=== PATIENT | female | born 1990 | race Caucasian/White ===

== ENCOUNTER 2018-09-26 19:36 | Emergency (ER) | payer MEDICAID ==
[2018-09-26] MEDS: Ketorolac 60 MG/2 ML SDV IM ONE ×2 (20:35→20:41)
[2018-09-26] MEDS ORDERED: Ibuprofen 800 MG Tab PO ONE (20:50)
--- NOTE | 2018-09-26 21:51 | EDM.PDOC ---
ED HPI GENERAL MEDICAL PROBLEM - General Chief Complaint: Headache Stated Complaint: SEIZURE AND HEADACHE Time Seen by Provider: 09/26/18 19:55 Source of Information: Reports: Intermediate Records History Limitations: Reports: No Limitations - History of Present Illness INITIAL COMMENTS - FREE TEXT/NARRATIVE: c/o of occipital SERRANO "for one year" not every day, has never d/w PCP, has not taken meds a little worse today and left work 1h early to come to ED, declined Toradol, took ibuprofen 800 mg altho said the SERRANO was almost gone said "I am a hypochondriac" was visible anxious and asking about cancer and other dx that were not a concern has inc'd AST/ALT with no comparison, hepatitis panel ordered, advised to d/w PCP, pt became very panicky, was reassured as best as possible 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 [employer] back of head Pain Score (Numeric/FACES): 10 - Related Data Allergies Allergy/AdvReac Type Severity Reaction Status Date / Time No Known Allergies Allergy Verified 09/26/18 20:33 Home Meds: Home Meds NK [No Known Home Meds] 09/26/18 [History] Past Medical History - Past Health History Medical/Surgical History: Denies Medical/Surgical History Social & Family History - Family History Family Medical History: Noncontributory - Tobacco Use Smoking Status *Q: Current Every Day Smoker Years of Tobacco use: 11 Packs/Tins Daily: 0.5 - Caffeine Use Caffeine Use: Reports: Coffee - Recreational Drug Use Recreational Drug Use: No ED ROS GENERAL - Review of Systems Review Of Systems: See Below Constitutional: Reports: No Symptoms HEENT: Reports: No Symptoms Respiratory: Reports: No Symptoms Cardiovascular: Reports: No Symptoms Endocrine: Reports: No Symptoms GI/Abdominal: Reports: No Symptoms : Reports: No Symptoms Musculoskeletal: Reports: No Symptoms Skin: Reports: No Symptoms Neurological: Reports: Headache Psychiatric: Reports: No Symptoms Hematologic/Lymphatic: Reports: No Symptoms Immunologic: Reports: No Symptoms - Physical Exam Exam: See Below Exam Limited By: No Limitations General Appearance: Alert, WD/WN, No Apparent Distress Ears: Normal External Exam, Normal Canal, Hearing Grossly Normal Nose: Normal Inspection, Normal Mucosa, No Blood Throat/Mouth: Normal Inspection, Normal Lips, Normal Oropharynx, Normal Voice, No Airway Compromise Head Exam: Atraumatic, Normocephalic, Other (no point tender, no swell) Neck: Normal Inspection, Supple, Non-Tender, Full Range of Motion Respiratory/Chest: No Respiratory Distress, Lungs Clear, Normal Breath Sounds, No Accessory Muscle Use, Chest Non-Tender Cardiovascular: Regular Rate, Rhythm, No Edema, No Gallop, No JVD, No Murmur, No Rub GI/Abdominal: Soft, Non-Tender, No Organomegaly, No Distention, No Mass Neuro Exam (Abbreviated): Alert, Oriented, CN II-XII Intact, Normal Cognition, Normal Gait, No Motor/Sensory Deficits Back Exam: Normal Inspection, Full Range of Motion, NT Extremities: Normal Inspection, Normal Range of Motion, Non-Tender, No Pedal Edema Psychiatric: Anxious, Other (excessive anxiety) Skin Exam: Warm, Dry, Intact, Normal Color, No Rash Course - Vital Signs Last Recorded V/S: Last Vital Signs Temp 37.1 C 09/26/18 19:36 Pulse 63 09/26/18 19:36 Resp 18 09/26/18 19:36 BP 119/94 H 09/26/18 19:36 Pulse Ox 100 09/26/18 19:36 - Orders/Labs/Meds Orders: Active Orders 24 hr Category Date Time Status HEPATITIS PANEL (4) Routine Lab 09/26/18 21:44 Ordered Labs: Laboratory Tests 09/26/18 09/26/18 Range/Units 20:40 20:40 WBC 7.4 (4.5-12.0) X10-3/uL RBC 5.14 (3.23-5.20) x10(6)uL Hgb 14.7 (11.5-15.5) g/dL Hct 42.9 (30.0-51.3) % MCV 83.4 (80-96) fL MCH 28.6 (27.7-33.6) pg MCHC 34.2 (32.2-35.4) g/dL RDW 13.6 (11.5-15.5) % Plt Count 217 (125-369) X10(3)uL MPV 8.8 (7.4-10.4) fL Neut % (Auto) 51.4 (46-82) % Lymph % (Auto) 35.0 (13-37) % Wheeler % (Auto) 8.3 (4-12) % Eos % (Auto) 4 (1.0-5.0) % Baso % (Auto) 1 (0-2) % Neut # (Auto) 3.8 (1.6-8.3) # Lymph # (Auto) 2.6 (0.6-5.0) # Wheeler # (Auto) 0.6 (0.0-1.3) # Eos # (Auto) 0.3 (0.0-0.8) # Baso # (Auto) 0.1 (0.0-0.2) # Sodium 139 (135-145) mmol/L Potassium 3.9 (3.5-5.3) mmol/L Chloride 104 (100-110) mmol/L Carbon Dioxide 29 (21-32) mmol/L BUN 13 (7-18) mg/dL Creatinine 0.6 (0.55-1.02) mg/dL Est Cr Clr Drug Dosing 119.47 mL/min Estimated GFR (MDRD) > 60 (>60) BUN/Creatinine Ratio 21.7 H (9-20) Glucose 94 (80-116) mg/dL Calcium 9.0 (8.6-10.2) mg/dL Total Bilirubin 0.3 (0.1-1.3) mg/dL AST 77 H (5-25) IU/L ALT 108 H (12-36) U/L Alkaline Phosphatase 87 (56-112) IU/L Total Protein 7.4 (6.0-8.0) g/dL Albumin 3.9 (3.5-5.2) g/dL Globulin 3.5 g/dL Albumin/Globulin Ratio 1.1 Meds: Medications Discontinued Medications Generic Name Dose Route Start Last Admin Trade Name Freq PRN Reason Stop Dose Admin Ibuprofen 800 mg 09/26/18 20:50 09/26/18 21:01 Motrin PO 09/26/18 20:51 800 mg ONETIME ONE Administration Ketorolac Tromethamine 60 mg 09/26/18 20:26 09/26/18 20:41 Toradol IM 09/26/18 20:27 Not Given ONETIME ONE - Re-Assessments/Exams Free Text/Narrative Re-Assessment/Exam: 09/26/18 21:53 hx and PE c/w tension occipital SERRANO, likely from muscle strain from bending over work station inc'd LFTs suspicious for hepatitis altho this was not d/w pt d/t her extreme anxiety, will need to be discussed with her later, hepatitis panel ordered Departure - Departure Time of Disposition: 21:45 Disposition: Home, Self-Care 01 Condition: Good Clinical Impression: Tension headache, Elevated liver function tests - Discharge Information *PRESCRIPTION DRUG MONITORING PROGRAM REVIEWED*: No *COPY OF PRESCRIPTION DRUG MONITORING REPORT IN PATIENT SANTI: No Instructions: Tension Headache, Adult Referrals: Christian Fraser MD [Primary Care Provider] - Additional Instructions: If you get another headache, take ibuprofen 200 mg 3 tabs within 30 minutes of onset of headache, repeat every 6 hours as needed. May use ice pack for 10 minutes every hour to head or neck as needed. See your doctor next week. You have mild elevation of 2 of your liver tests, which you will want to discuss further with your doctor. Return to ED if you are feeling worse. - My Orders Last 24 Hours: My Active Orders 09/26/18 21:44 HEPATITIS PANEL (4) Routine - Assessment/Plan Last 24 Hours: My Active Orders 09/26/18 21:44 HEPATITIS PANEL (4) Routine
== END 2018-09-26 21:50 | disposition home or self-care (01) ==
LOC: FB.ED 19:36
DX: G44.209 Tension-type headache, unspecified, not intractable (principal); R79.89 Other specified abnormal findings of blood chemistry; F17.210 Nicotine dependence, cigarettes, uncomplicated
CPT/HCPCS: 36415; 80053; 85025; 99284; A9270; J1885

== ENCOUNTER 2021-01-06 22:06 | Emergency (ER) | payer MEDICAID ==
[2021-01-06] MEDS ORDERED: Ketorolac 60 MG/2 ML SDV IM ONE (22:18)
[2021-01-06] MEDS ORDERED: LORazepam 2 MG/ML SDV IM ONE (22:18)
--- NOTE | 2021-01-06 22:27 | EDM.PDOCBH ---
ED HPI GENERAL MEDICAL PROBLEM - General Chief Complaint: Drug or Alcohol Abuse Stated Complaint: DRANK TO MUCH Time Seen by Provider: 01/06/21 22:24 Source of Information: Reports: Patient History Limitations: Reports: Intoxication - History of Present Illness INITIAL COMMENTS - FREE TEXT/NARRATIVE: SAMIR feels she drank too much. She was unable to move.Not sure is she blacked out. She now complains of not feeling good. Specifcaly she has chest pain,retrosternal;No SOB upper gastric pain Pain Score (Numeric/FACES): 10 - Related Data Allergies Allergy/AdvReac Type Severity Reaction Status Date / Time No Known Allergies Allergy Verified 09/26/18 20:33 Home Meds: Home Meds NK [No Known Home Meds] 09/26/18 [History] Past Medical History - Past Health History Medical/Surgical History: Denies Medical/Surgical History Social & Family History - Family History Family Medical History: No Pertinent Family History - Caffeine Use Caffeine Use: Reports: Coffee ED ROS GENERAL - Review of Systems Review Of Systems: Comprehensive ROS is negative, except as noted in HPI. ED EXAM, BEHAVIORAL HEALTH - Physical Exam Exam: See Below Exam Limited By: Intoxication General Appearance: Alert, Anxious Ears: Normal External Exam Throat/Mouth: Normal Inspection Head: Atraumatic Neck: Normal Inspection Respiratory/Chest: No Respiratory Distress, Lungs Clear, Normal Breath Sounds COURSE, BEHAVIORAL HEALTH COMP - Course Vital Signs: Last Vital Signs Temp 97.9 F 01/06/21 22:06 Pulse 85 01/06/21 22:06 Resp 17 01/06/21 22:06 BP 124/81 01/06/21 22:06 Pulse Ox 100 01/06/21 22:06 Orders, Labs, Meds: Medications Discontinued Medications Generic Name Dose Route Start Last Admin Trade Name Freq PRN Reason Stop Dose Admin Ketorolac Tromethamine 60 mg 01/06/21 22:18 01/06/21 22:25 Ketorolac 60 Mg/2 Ml Sdv IM 01/06/21 22:19 60 mg ONETIME ONE Administration Lorazepam 1 mg 01/06/21 22:18 01/06/21 22:25 Lorazepam 2 Mg/Ml Sdv IM 01/06/21 22:19 1 mg ONETIME ONE Administration Departure - Departure Time of Disposition: 08:29 Disposition: Home, Self-Care 01 Condition: Good Clinical Impression: Alcohol abuse, Anxiety - Discharge Information Instructions: Panic Attack, [id number], Alcohol Intoxication, [id number] Referrals: Christian Fraser MD [Primary Care Provider] - Forms: ED Department Discharge Additional Instructions: please drink a lot of water stop drinking alcohol follow up with your primary care as needed Sepsis Event Note (ED) - Focused Exam Vital Signs: Vital Signs Temp Pulse Resp BP Pulse Ox 01/06/21 22:06 97.9 F 85 17 124/81 100 - Problem List & Annotations (1) Alcohol abuse SNOMED Code(s): 37014503 Code(s): F10.10 - ALCOHOL ABUSE, UNCOMPLICATED Status: Acute (2) Anxiety SNOMED Code(s): 66066369 Code(s): F41.9 - ANXIETY DISORDER, UNSPECIFIED Status: Acute - Problem List Review Problem List Initiated/Reviewed/Updated: Yes - Assessment/Plan Plan: Lorazepam and toradol. Vital signs look normal and are stable.
== END 2021-01-06 23:05 | disposition home or self-care (01) ==
LOC: FB.ED 22:06
DX: F10.129 Alcohol abuse with intoxication, unspecified (principal); F41.9 Anxiety disorder, unspecified
CPT/HCPCS: 96372; 99283; J1885; J2060

== ENCOUNTER 2021-04-03 15:10 | Emergency (ER) | payer MEDICAID ==
[2021-04-03] MEDS ORDERED: Ketorolac 30 MG/ML SDV IM ONE (15:42)
[2021-04-03] MEDS ORDERED: Lidocaine 2% Viscous Solution 15 ML Cup PO ONE (15:43)
--- NOTE | 2021-04-03 15:49 | EDM.PDOC ---
ED HPI GENERAL MEDICAL PROBLEM - General Stated Complaint: TOOTH PAIN Time Seen by Provider: 04/03/21 15:30 Source of Information: Reports: Patient History Limitations: Reports: No Limitations - History of Present Illness INITIAL COMMENTS - FREE TEXT/NARRATIVE: c/o tooth pain x 2d 2d ago at a bar eating chicken, felt her tooth #18 crack, had has pain that has gotten worse saw a dentist in [facility] 3w ago and told she infection in the same tooth based on x-rays, had no pain or swelling then, took an antbx TID now she has swelling of her cheek today - Related Data Allergies Allergy/AdvReac Type Severity Reaction Status Date / Time No Known Allergies Allergy Verified 04/03/21 15:48 Home Meds: Home Meds Amoxicillin 500 mg PO TID #30 tab 04/03/21 [Rx] Past Medical History - Past Health History Medical/Surgical History: Denies Medical/Surgical History Social & Family History - Family History Family Medical History: No Pertinent Family History - Caffeine Use Caffeine Use: Reports: Coffee ED ROS ENT - Review of Systems Review Of Systems: See Below Constitutional: Reports: No Symptoms HEENT: Reports: Dental Pain Respiratory: Reports: No Symptoms Cardiovascular: Reports: No Symptoms Endocrine: Reports: No Symptoms GI/Abdominal: Reports: No Symptoms : Reports: No Symptoms Musculoskeletal: Reports: No Symptoms Skin: Reports: No Symptoms Neurological: Reports: No Symptoms Psychiatric: Reports: No Symptoms Hematologic/Lymphatic: Reports: No Symptoms Immunologic: Reports: No Symptoms ED EXAM, ENT - Physical Exam Exam: See Below Exam Limited By: No Limitations General Appearance: Alert, WD/WN, Mild Distress Mouth/Throat: Other (tooth #18 is missing posterior 25%, gingiva with no red/swell, 2+ tender, mild swell of cheek on L, no submandibular LNs) Head: Atraumatic Respiratory/Chest: No Respiratory Distress Cardiovascular: Regular Rate, Rhythm Course - Orders/Labs/Meds Orders: Active Orders 24 hr Category Date Time Status Ketorolac [Toradol] Med 04/03/21 15:42 Once 60 mg IM ONETIME ONE Lidocaine 2% [Xylocaine 2% Viscous] Med 04/03/21 15:43 Once 15 ml PO ONETIME ONE - Re-Assessments/Exams Free Text/Narrative Re-Assessment/Exam: 04/03/21 15:54 hx and PE c/w dental abscess, pt scheduled to have that tooth extracted in 4d altho this may need need to be postponed, pt to notify dentist of ED visit today Departure - Departure Time of Disposition: 15:44 Disposition: Home, Self-Care 01 Condition: Good Clinical Impression: Pain, dental, Dental abscess - Discharge Information *PRESCRIPTION DRUG MONITORING PROGRAM REVIEWED*: Not Applicable *COPY OF PRESCRIPTION DRUG MONITORING REPORT IN PATIENT SANTI: Not Applicable Prescriptions: Amoxicillin 500 mg PO TID #30 tab Instructions: Dental Abscess Additional Instructions: For infection, take amoxicillin 500 mg 1 tab 3 times a day for 10 days. For pain, take ibuprofen 200 mg 4 tabs and acetaminophen 500 mg 2 tabs 3 times a day for 2 days, longer if needed. For pain, put a thin layer of 2% viscous lidocaine on a cotton ball and bite down every hour as needed. For pain, use ice for 10 minutes every hour as needed. Eat cool, soft food. Chew on the right side of the mouth. Drink cold liquids. Notify your dentist in 2 days. - My Orders Last 24 Hours: My Active Orders 04/03/21 15:42 Ketorolac [Toradol] 60 mg IM ONETIME ONE 04/03/21 15:43 Lidocaine 2% [Xylocaine 2% Viscous] 15 ml PO ONETIME ONE - Assessment/Plan Last 24 Hours: My Active Orders 04/03/21 15:42 Ketorolac [Toradol] 60 mg IM ONETIME ONE 04/03/21 15:43 Lidocaine 2% [Xylocaine 2% Viscous] 15 ml PO ONETIME ONE
== END 2021-04-03 16:30 | disposition home or self-care (01) ==
LOC: FB.ED 15:10
DX: K04.7 Periapical abscess without sinus (principal)
CPT/HCPCS: 96372; 99282; A9270; J1885